=== PATIENT | male | born 1955 | race Caucasian/White ===

== ENCOUNTER 2021-02-13 04:04 | Emergency (ER) | payer SELFPAY ==
[~2021-02-13] VITALS: Ht 170.2 cm; Wt 64.9 kg
[2021-02-13 04:16] VITALS: BP 138/83
--- NOTE | 2021-02-13 04:19 | NUR ---
TO LOBBY A/W BED AMBULATORY
--- NOTE | 2021-02-13 05:32 | NUR ---
PT TAKEN TO XRAY
--- NOTE | 2021-02-13 05:33 | NUR ---
PT RETURN FROM XRAY TO LOBBY
[2021-02-13 07:27] LABS: BASOPHILS % (AUTO) 0.2 % (0.0-2.0); EOSINOPHILS % (AUTO) 0.1 % (0.0-4.0); HEMOGLOBIN 17.2 g/dL (12.0-18.0); LYMPHOCYTES # (AUTO) 0.6 K/uL (2.0-11.5); LYMPHOCYTES % (AUTO) 7.1 % (20.5-51.1); MEAN CORPUSCULAR HEMOGLOBIN 29 pg (27-31); MEAN CORPUSCULAR HGB CONC 33 g/dL (33-37); MONOCYTES # (AUTO) 0.4 K/uL (0.8-1.0); MONOCYTES % (AUTO) 4.1 % (1.7-9.3); NEUTROPHILS # (AUTO) 7.9 K/uL (1.8-7.7); NEUTROPHILS % (AUTO) 88.5 % (42.2-75.2); PLATELET COUNT (AUTO) 238 K/uL (140-450); RED BLOOD CELL COUNT(AUTO) 5.85 MIL/uL (4.20-6.10); RED CELL DISTRIBUTION WIDTH 14.2 % (11.6-13.7); WHITE BLOOD COUNT (AUTO) 8.9 K/uL (4.8-10.8)
[2021-02-13] MEDS ORDERED: KETOROLAC 15 MG/ML VIAL ONE (07:51)
[2021-02-13] MEDS ORDERED: ONDANSETRON 4 MG/2 ML VIAL ONE (07:51)
[2021-02-13] MEDS ORDERED: FAMOTIDINE 20 MG/2 ML VIAL ONE (07:52)
[2021-02-13 07:55] LABS: ALBUMIN 3.5 g/dL (3.4-5.0); ANION GAP 26.8 (8-16); CARBON DIOXIDE 17.4 mmol/L (21-32); CREATININE 2.2 mg/dL (0.6-1.3); POTASSIUM 4.2 mmol/L (3.5-5.1); TOTAL BILIRUBIN 1.2 mg/dL (0.0-1.0)
[2021-02-13 08:00] VITALS: BP 136/80
[2021-02-13] MEDS: NACL 0.9% 1,000 ML IV SCH (08:02)
[2021-02-13] MEDS: ONDANSETRON 4 MG/2 ML VIAL IVP ONE (08:03)
[2021-02-13] MEDS: FAMOTIDINE 20 MG/2 ML VIAL IVP ONE (08:03)
[2021-02-13] MEDS: KETOROLAC 30 MG/ML VIAL IVP ONE (08:04)
[2021-02-13] MEDS: ASPIRIN 81 MG TAB.CHEW PO ONE (08:10)
[2021-02-13] MEDS: INSULIN REGULAR, HUMAN 100 UNIT/ML VIAL SUBQ ONE (08:10)
[2021-02-13] MEDS ORDERED: INSULIN REGULAR, HUMAN 100 UNIT in NACL 0.9% 100 ML IV ONE ×2 (08:55)
--- NOTE | 2021-02-13 09:00 | NUR ---
CPR STARTED AT THIS TIME. DR JOSE, RNs AND RT AT BEDSIDE. ROSC ACHEIVED AT 0917.
[2021-02-13] MEDS ORDERED: EPINEPHrine 1 MG/ML AMP ONE (09:01)
--- NOTE | 2021-02-13 09:12 | NUR ---
PT INTUBATED WITH A 7.5 ETT SECURED @26 TEETH/GUM. ETT PLACEMENT CONFIRMED WITH COLOR CHANGE ON CO2 DETECTOR, CXR TO BE ORDERED. BILATERAL BREATH SOUNDS HEARD ON AUSCULTATION.
[2021-02-13] MEDS ORDERED: cefTRIAXone 1,000 MG VIAL ONE (09:21)
--- NOTE | 2021-02-13 09:21 | NUR ---
PT PLACED ON VENT. SETTINGS AC 18 VT 500, PEEP 5 AND FIO2 100% ETT IS SECURED @26 TEETH/GUM ON VENT. VENT ALARMS ON AND FUNCTIONING. WILL CONTINUE TO MONITOR.
--- NOTE | 2021-02-13 09:47 | NUR ---
CPR STARTED AT THIS TIME. DR JOSE, RNs AND RT AT BEDSIDE. TIME OF 1000.
--- NOTE | 2021-02-13 10:06 | NUR ---
called engagement specialist at this time. spoke with rosario. asked t wait for deputy to call.
--- NOTE | 2021-02-13 10:17 | NUR ---
spoke with tino from [employer]. patient not a candidate for donation, june release. reference # [id number].
--- NOTE | 2021-02-13 11:23 | NUR ---
Daughter in law [facility] [phone]
--- NOTE | 2021-02-13 11:39 | NUR ---
received triage call from economic research assistant's office. spoke with delmis king, supervisor chemical. was told that patient will be taken as economic research assistant's case but to await for deputy's call. no reference number given. also given permission to move patient to another room.
--- NOTE | 2021-02-13 11:59 | NUR ---
PT MOVED TO [facility] 129
--- NOTE | 2021-02-13 12:30 | NUR ---
DC PLANNING LATE ENTRY SW WAS CONTACTED BY ED/ NURSE DOYLE WHO INFORMED THESE TUNNEL HEADING INSPECTOR OF PATIENT'S AT ED BED AND HAVING PATIENT AND FAMILY TRANSFER TO ROOM 129B FOR PRIVACY WITH PATIENT. SW MEET FAMILY AT BEDSIDE SON HILARY, DAUGHTER IN-LA[place] JAMISON AND PATIENT'S GRANDCHILDREN. FAMILY WAS PRAYING AT BEDSIDE WHEN SW ARRIVED AND PATIENT'S SON HILARY AND DAUGTHER IN LAW JAMISON MET WITH SW STATING THAT PATIENT LIVES IN [place] [facility], WHO WAS JUST VISITING HIS FAMILY HERE IN [facility] FOR ABOUT 3 MONTHS. PER SON PATIENT IS DIABETIC AND HAD MEDICAL ATTENTION IN [place] THERE WITH PRIMARY MD. PER SON HE WAS TAKING HIS MEDICATIONS HOWEVER; HE STARTED TO FEEL SICK ABOUT COUPLE DAYS AGO AND TODAY SEEM WEAK WITH CONTINUOS VOMITING THEREFORE; HE BROUGHT HIM TO [facility]. PER SON AND DAUGHTER [place] THEY WILL NEED TO REQUEST ALL MEDICAL RECORDS FOR PATIENT TO SHOW TO THE FAMILY AND OTHER RELATIVES. BOTH ALSO STATED THAT PATIENT HAS MADE ARRANGEMENTS WITH A MORTUARY, HOWEVER TOOK [employer] INFORMATION STATING THAT THEY WILL BE PLACING A CALL WITH THEM TO GET ASSISTANCE IF IS NEEDED. FAMILY WAS THANKFUL TO THESE TUNNEL HEADING INSPECTOR FOR THE ASSISTANCE AND ENDED THE VISIT WITH FAMILY. SW WILL FOLLOW UP WITH PATIENT FAMILY WHEN NEEDED.
--- NOTE | 2021-02-13 14:00 | NUR ---
family chose [facility] for patient
--- NOTE | 2021-02-13 15:00 | NUR ---
received call from wood patternmaker's office, spoke with desmond. reference #[id number]. patient will be taken as wood patternmaker's case. desmond contact #: [phone]
[2021-02-13 15:37] LABS: APPEARANCE,URINE CLEAR (CLEAR); BILIRUBIN,URINE NEGATIVE (NEGATIVE); BLOOD, URINE NEGATIVE (NEGATIVE); COLOR,URINE YELLOW (YELLOW); LEUKOCYTE ESTERASE ,URINE NEGATIVE (NEGATIVE); NITRITE, URINE NEGATIVE (NEGATIVE); PH,URINE 5.5 (5.0-9.0); UGLUCOSE 3+ (NEGATIVE)
--- NOTE | 2021-02-13 17:20 | NUR ---
[facility] transport arrived at this time.
== END 2021-02-13 10:00 ==
LOC: MED 04:04
DX: E11.65 Type 2 diabetes mellitus with hyperglycemia (principal); I10 Essential (primary) hypertension; R10.9 Unspecified abdominal pain
CPT/HCPCS: 31500; 36415; 36600; 71045; 80053; 81003; 82803; 83605; 83690; 83880; 84484; 85025; 87040; 92950; 93005; 96361; 96365; 96372; 96375; 99291; J0696; J1815; J1885; J2405; J3490; J7030; J0171